=== PATIENT | female | born 1980 | race Caucasian/White ===

== ENCOUNTER → 2016-05-11 | Outpatient (CLI) | payer OTHER ==
[~2016-05-11] VITALS: Ht 165.1 cm; Wt 90.6 kg
[~2016-05-11] MED LIST: ALIGN4 MG PO; BACLOFEN PO; CALCIUM 600+D1 EAC3 PO; CELEBREX; CELEBREX 200 M200 MG PO; CELEBREX PO; CHLORZOXAZONE500 MG PO; CYMBALTA60 MG PO; DILANTIN100 MG PO; DILAUDID 2 MG TA2 MG PO; DILAUDID2 M1 PO; EFFEXOR XR75 MG PO; FISH OIL 1,0001 EAC5 PO; FLEXERIL PO; L-PHENYLALANIN500 MG PO; LAMICTAL100 MG PO; LOMOTIL TABLET1 EACH PO; LYRICA150 MG PO; LYRICA225 MG PO; METHADONE HCL 110 M1 PO; MILK THISTLE500 MG PO; MS CONTIN15 MG PO; MS CONTIN30 MG PO; MULTIVITAMINS PO; OXYCODONE HCL5 M1 PO; OXYCONTIN10 M1 PO; PRINIVIL20 MG PO; RELAFEN500 MG PO; REMERON15 MG PO; SKELAXIN 800 M800 M1 PO; SUBOXONE 8 MG-1 EAC2 SL; TIZANIDINE HCL4 MG PO; TRAZODONE HCL100 MG PO; TYROSINE PO; VENLAFAXIN75 MG/1 T2 PO; VITAMIN B-12500 MCG PO; VITAMIN D1000 UNI1 PO; WELCHOL PO; ZANAFLEX4 MG PO; ZINC CHELATE50 MG PO; [UNRECOGNIZED DRUG - OTHER]; gaba PO
--- NOTE | ~2016-05-11 | HPC ---
[facility] [place] [address] PAIN MANAGEMENT CONSULTATION Name: PIYUSH MASSEY [id number] Admission: 05/11/16 Attend Phys: Elpidio Knight DO Discharge: Date of : 78 Report #: [id number] THIS REPORT FOR: //name// CC: NARGIS physician/PCP Elpidio Knight The patient is a 35-year-old female, well known to the pain clinic, typically treated for lumbar radiculopathy, status post decompressive laminectomy, component of SI joint pain, lumbosacral spondylosis, requiring complex medication management for ongoing lumbar radicular and axial back pain. Last seen in the pain clinic on 03/05/2016. We did progress with two bilateral SI joint injections under fluoroscopy at that time. Last medication visit was 02/17/2016. The patient was continued on MS Contin 15 mg q. 8 hours, hydromorphone 2 mg one tablet 3 times a day for breakthrough pain, Celebrex 200 mg daily, and Lyrica 225 mg b.i.d. Urine drug screen at that time was positive for all prescribed medications. He returns to pain clinic today, we had a prolonged visit from 10:15 to 10:40. Her work comp administrators have requested buccal swab to verify current medications. This was collected today. The patient notes pain is at 7-8/10. Chronic low back, left hip, and leg, burning dysesthesia, exacerbated with walking, standing, and bending. Takes "breaks" every 15-20 minutes. Medications do enable her to be a little more functional. She notes with cold weather, she is having increasing breakthrough pain. PHYSICAL EXAMINATION: GENERAL: Shows a 35-year-old female, BMI is 33.2 kilograms per meter squared. Blood pressure is 95/58, pulse is 134, respirations are 20, afebrile with a temperature of 98.1. Rises from the chair using armrest. Modestly antalgic gait, diffuse. Lumbar flexion is limited to about 70 degrees. Diffuse tenderness across the low back, modestly positive straight leg raise on the left with slight decreased left hip flexion strength. Again, describes burning, tingling, numb, and cramping sensation in the low back, left hip, and leg. Rates the pain at 7-8 on a 0-10 visual analog scale. The patient continues to smoke, was counseled regarding the same. States she is down to a "less than half a pack of cigarettes a day". We reviewed the fact that opiate medications are being used to provide analgesia adequate to support activities of daily living, not attempting to achieve a specific pain score on the 0-10 Visual Analog Scale. The current opiate medications are providing sufficient analgesia to allow the patient to participate in activities of daily living. The patient is not exhibiting any aberrant behavior suggestive of drug diversion. The patient is not having any adverse reactions to medications. The patient is not suffering from daytime somnolence or mental acuity changes. The patient is managing opiate-induced [address] [address] PAIN MANAGEMENT CONSULTATION Name: PIYUSH MASSEY Room #: SANDEEP Blum#: [id number] Admission: 05/11/16 Attend Phys: Elpidio Knight DO Discharge: Date of : 78 Report #: [id number] constipation with appropriate kuqd-nme-aqluell agents and dietary considerations. The patient was counseled on concern for caution with operating a motor vehicle while using opiate medications. A physical exam was performed and the patient's functional status was evaluated. All patients with back pain were advised against the bed rest greater than 4 days and were advised to return to normal activities. Pain score assessment was noted and the treatment plan was reviewed with the patient. All current medications, both prescribed and OTC were reviewed and reconciled on the electronic medical record. Tobacco screening was accomplished and smoking cessation was advised when indicated. BMI was noted and diet/exercise modification was recommended for all patients following outside normal parameters. I reviewed with the patient today their responsibilities to safeguard prescription medications, reviewed their responsibility to utilize medications only as prescribed by the physician. They are to seek and receive pain medications only from 1 physician group ( [facility]). They are to use 1 pharmacy and keep the clinic informed if they change pharmacies. Their responsibilities include making followup visits in a timely fashion and to avoid abrupt discontinuation of medication usage. Their responsibilities further include bringing their medications (bottles from the pharmacy with residual pills) to the visit for possible confirmation of pill counts and the patient understands it is their responsibility to submit to random drug screens to ensure both that the medications prescribed are present, and that no other controlled substances are present. All prescriptions provided today were generated electronically. ASSESSMENT: Symptomatic lumbar radiculopathy status post decompressive laminectomy, sacroiliac joint dysfunction, component of lumbosacral spondylosis, requiring complex medication management, and axial back pain. Does note the SI injection gave about 40% relief for 4 days. Given the nominal efficacy, we are not moving forward with further interventional therapy at this time. I have taken the liberty of renewing her current medication with caveat that we will increase hydromorphone 2 mg t.i.d. to total of 100 tablets for 30 days, enabling a 4th tablet on or after 10 days throughout the month with increasing pain in the winter weather. We will plan on dropping back to 90 tablets hopefully in the spring. Discharged in good and stable condition. Greater than 50% of the visit was spent counseling the patient. <ELECTRONICALLY SIGNED> By: Elpidio Knight DO 05/18/16 [id number] Elpidio Knight DO /nt
[2016-05-11 10:19] VITALS: BP 95/58
== END | disposition home or self-care (01) ==
LOC: PAIN 04-13 06:31
DX: M54.12 Radiculopathy, cervical region (principal); M53.3 Sacrococcygeal disorders, not elsewhere classified; M47.896 Other spondylosis, lumbar region; M54.9 Dorsalgia, unspecified; Z98.890 Other specified postprocedural states; F17.210 Nicotine dependence, cigarettes, uncomplicated

== ENCOUNTER → 2016-10-05 | Outpatient (CLI) | payer OTHER ==
[~2016-10-05] VITALS: Ht 165.1 cm; Wt 75.8 kg
[~2016-10-05] MED LIST changes: +LYRICA 75 MG CA75 MG PO; +NEURONTIN 300300 M1 PO; +ONDANSETRON HCL4 M2 PO; +SEROQUEL 50 MG50 MG PO; +TOPROL XL25 MG PO; +VOLTAREN GEL 1100 G2 TOP
--- NOTE | ~2016-10-05 | HPC ---
[facility] [place] [address] PAIN MANAGEMENT CONSULTATION Name: PIYUSH MASSEY Room #: REG [facility] Blum#: [id number] Admission: 10/05/16 Attend Phys: Elpidio Knight DO Discharge: Date of : 78 Report #: [id number] THIS REPORT FOR: //name// CC: NARGIS physician/PCP Elpdiio Knight HISTORY OF PRESENT ILLNESS: The patient is a 35-year-old female, long known to the pain clinic, typically treated for lumbar radiculopathy requiring complex medication management. Last visit on 08/07/2016 we had elected to discontinue hydromorphone p.r.n. as she had had 2 negative urine drug screen through this agent. We increased MS Contin from 15 mg q. 8 hours to 30 mg b.i.d. I trialed some topical Voltaren gel. We discontinued Celebrex due to decrease in renal function noted on laboratory evaluation when she was hospitalized for acute cholecystitis. She returns to pain clinic today. Notes her subjective pain score is 7/10. Pain is primarily in the left hip, lateral aspect to the knee. Notes pain is exacerbated with standing and walking. She describes a burning, tingling, numb sensation, cramping sensation . The patient has been not able to work due to ongoing medical issues including GI issues status post her cholecystectomy and ongoing chronic pain concerns. She is seen in the company today of a friend who is supportive. PHYSICAL EXAMINATION: Shows a 35-year-old female, BMI is 27.8 kilograms per meter squared. Vital signs are stable as noted in the EMR. Rises from the chair using armrest, modestly antalgic gait. Left hip flexion and lower extremity left-sided extension strength is diminished, perhaps 3/5, all other muscle groups are about 4/5. Straight leg raise is positive on the left at 30 degrees. Patellar and Achilles reflexes are preserved. Skin integument is generally intact. We reviewed the fact that opiate medications are being used to provide analgesia adequate to support activities of daily living, not attempting to achieve a specific pain score on the 0-10 Visual Analog Scale. The current opiate medications are providing sufficient analgesia to allow the patient to participate in activities of daily living. The patient is not exhibiting any aberrant behavior suggestive of drug diversion. The patient is not having any adverse reactions to medications. The patient is not suffering from daytime somnolence or mental acuity changes. The patient is managing opiate-induced constipation with appropriate lmgr-wtr-zbepqbc agents and dietary considerations. The patient was counseled on concern for caution with operating a motor vehicle while using opiate medications. A physical exam was performed and the patient's functional status was evaluated. All patients with back pain were advised against the bed rest greater than [address] [place] [address] PAIN MANAGEMENT CONSULTATION Name: BRYSONPIYUSH Odalys Room #: REG [facility] Kulwant#: [id number] Admission: 10/05/16 Attend Phys: Elpidio Knight DO Discharge: Date of : 78 Report #: [id number] days and were advised to return to normal activities. Pain score assessment was noted and the treatment plan was reviewed with the patient. All current medications, both prescribed and OTC were reviewed and reconciled on the electronic medical record. Tobacco screening was accomplished and smoking cessation was advised when indicated. BMI was noted and diet/exercise modification was recommended for all patients following outside normal parameters. I reviewed with the patient today their responsibilities to safeguard prescription medications, reviewed their responsibility to utilize medications only as prescribed by the physician. They are to seek and receive pain medications only from 1 physician group ( [facility]). They are to use 1 pharmacy and keep the clinic informed if they change pharmacies. Their responsibilities include making followup visits in a timely fashion and to avoid abrupt discontinuation of medication usage. Their responsibilities further include bringing their medications (bottles from the pharmacy with residual pills) to the visit for possible confirmation of pill counts and the patient understands it is their responsibility to submit to random drug screens to ensure both that the medications prescribed are present, and that no other controlled substances are present. All prescriptions provided today were generated electronically. ASSESSMENT: 1. Symptomatic lumbar radiculopathy requiring complex medication management. 2. The patient medically disabled, currently on work compensation. RECOMMENDATION: After discussion with the patient today about therapeutic option, we have elected to continue MS Contin 30 mg b.i.d., I have taken the liberty of writing for 2 months of current medication. She is taking Lyrica 225 mg b.i.d. She thinks that gabapentin prior use had been helpful. After discussion with the patient today, we have elected to add in a low dose of gabapentin 300 mg b.i.d. to be taking concurrently with her Lyrica. We will not use p.r.n. opiate. We will not resume Celebrex despite the fact the patient tells me her renal functions are "trending towards normal." We reviewed the opiate consent to treat contract today. Also a urine drug screen was obtained today per the patient's insurance carrier request, this laboratory test will be sent to their lab (I believe the lab is [facility]). The patient was discharged in good and stable condition. Follow up in 2 months for reevaluation. By: [id number] Elpidio Knight DO /carie
[2016-10-05 10:17] VITALS: BP 122/70
== END ==
LOC: PAIN 06:07
DX: M54.16 Radiculopathy, lumbar region (principal); G89.29 Other chronic pain; I10 Essential (primary) hypertension; E11.9 Type 2 diabetes mellitus without complications; F17.210 Nicotine dependence, cigarettes, uncomplicated

== ENCOUNTER → 2016-11-23 | Outpatient (CLI) | payer OTHER ==
[~2016-11-23] VITALS: Ht 165.1 cm; Wt 81.4 kg
[~2016-11-23] MED LIST changes: +ADDERALL XR 5 MG5 MG PO; +ANASPAZ0.125 MG SL; +OMEPRAZOLE20 M1 PO; +PEPCID20 MG PO
--- NOTE | ~2016-11-23 | HPC ---
[facility] [place] [address] PAIN MANAGEMENT CONSULTATION Name: PIYUSH MASSEY Room #: REG [facility] Kulwant#: [id number] Admission: 11/23/16 Attend Phys: Elpidio Knight DO Discharge: Date of : 78 Report #: [id number] THIS REPORT FOR: //name// CC: NARGIS physician/PCP Elpidio Knight HISTORY OF PRESENT ILLNESS: The patient is a 35-year-old female being treated for lumbar radiculopathy, status post decompressive laminectomy times 2, requiring complex medication management, component of SI joint pain. The patient was last seen in the pain clinic, 10/05/2016. We increased MS Contin 15 q. 8 hours to 30 mg b.i.d., discontinued Celebrex due to some compromise in renal function noted on prior hospitalization for cholecystitis and pancreatitis. Continued Lyrica 225 mg b.i.d. I discontinued hydromorphone as it had been negative on various drug scans. It had also been positive, she was clearly taking it on a non-daily basis. I was concerned she was using it aggressively at the first part of the month and running out at the end. We trialed adding back some gabapentin as it had been efficacious in the past, though she notes it has not been helpful. She returns to pain clinic today noting pain remains quite problematic. Complains that her pain is a "7-8" on a 0-10 visual analog scale. Again, status post 2 back surgeries in 2005 initially and then a reoperation in 2007 or 2008. Most recent exacerbation of abdominal concerns, including cholecystitis and now pancreatitis, she has an EGD scheduled at [facility], actually apparently the authorization for this is pending. She notes her primary pain remains left greater than right low back and hip. She continues to smoke, but is down to 4-5 cigarettes a day. She describes burning, tingling, numb and cramping sensation in the back with some left hip and leg pain; exacerbated with activity, walking and bending. She states medications provide some improvement of pain. PHYSICAL EXAMINATION: GENERAL: Shows a 35-year-old female. BMI is 29.9 kilograms per meter squared. VITAL SIGNS: Stable as noted in the EMR. MUSCULOSKELETAL: Has a little cervical thoracic kyphosis (walks with the head forward position, not sure if this is simply posture alone). Tender in the low back over the left iliac crest. Left hip passive rotation causes pain. Positive Zenon test. Positive straight leg raise on the left is noted as well. Diffuse tenderness across the low back. We reviewed the fact that opiate medications are being used to provide analgesia adequate to support activities of daily living, not attempting to achieve a specific pain score on the 0-10 Visual Analog Scale. The current opiate medications are providing sufficient analgesia to allow the patient to participate in activities of daily living. The patient is not exhibiting any aberrant behavior suggestive of drug diversion. The [place] [address] PAIN MANAGEMENT CONSULTATION Name: PIYUSH MASSEY Room #: REG THERESA Blum#: [id number] Admission: 11/23/16 Attend Phys: Elpidio Knight DO Discharge: Date of : 78 Report #: [id number] adverse reactions to medications. The patient is not suffering from daytime somnolence or mental acuity changes. The patient is managing opiate-induced constipation with appropriate mfvp-csi-pqiuajz agents and dietary considerations. The patient was counseled on concern for caution with operating a motor vehicle while using opiate medications. A physical exam was performed and the patient's functional status was evaluated. All patients with back pain were advised against the bed rest greater than 4 days and were advised to return to normal activities. Pain score assessment was noted and the treatment plan was reviewed with the patient. All current medications, both prescribed and OTC were reviewed and reconciled on the electronic medical record. Tobacco screening was accomplished and smoking cessation was advised when indicated. BMI was noted and diet/exercise modification was recommended for all patients following outside normal parameters. I reviewed with the patient today their responsibilities to safeguard prescription medications, reviewed their responsibility to utilize medications only as prescribed by the physician. They are to seek and receive pain medications only from 1 physician group ( [facility]). They are to use 1 pharmacy and keep the clinic informed if they change pharmacies. Their responsibilities include making followup visits in a timely fashion and to avoid abrupt discontinuation of medication usage. Their responsibilities further include bringing their medications (bottles from the pharmacy with residual pills) to the visit for possible confirmation of pill counts and the patient understands it is their responsibility to submit to random drug screens to ensure both that the medications prescribed are present, and that no other controlled substances are present. All prescriptions provided today were generated electronically. ASSESSMENT: Chronic pain syndrome, requiring complex medication management; lumbar radiculopathy, status post decompressive laminectomy and SI joint dysfunction, requiring complex high-risk medication management. RECOMMENDATIONS: We will check a BUN and creatinine today. If lab values are appropriate, within normal limits, I will enable the nursing staff to phone in a prescription for Celebrex to the patient's [facility] pharmacy ([phone]). Otherwise, continue MS Contin 30 mg b.i.d., Lyrica 225 b.i.d., discontinue gabapentin due to lack of efficacy and continue Flexeril 10 mg t.i.d. for spasm. By: [id number] Elpidio Knight DO /nt
[2016-11-23 10:32] VITALS: BP 112/78
== END | disposition home or self-care (01) ==
LOC: PAIN 06:50
DX: M54.16 Radiculopathy, lumbar region (principal); Z98.890 Other specified postprocedural states; M53.3 Sacrococcygeal disorders, not elsewhere classified; K85.90 Acute pancreatitis without necrosis or infection, unspecified; K81.9 Cholecystitis, unspecified; G89.4 Chronic pain syndrome

== ENCOUNTER → 2017-01-18 | Outpatient (CLI) | payer OTHER ==
[~2017-01-18] VITALS: Ht 165.1 cm; Wt 87.5 kg
[~2017-01-18] MED LIST changes: +PRAZOSIN 1 MG CA1 M1 PO; +SEROQUEL XR 30300 MG PO
--- NOTE | ~2017-01-18 | HPC ---
[facility] [address] [place] [address] PAIN MANAGEMENT CONSULTATION Name: PIYUSH MASSEY Room #: REG [id number] Admission: 01/18/17 Attend Phys: Elpidio Knight DO Discharge: Date of : 78 Report #: [id number] THIS REPORT FOR: //name// CC: NARGIS physician/PCP Elpidio Knight HISTORY OF PRESENT ILLNESS: The patient is a 36-year-old female being treated for lumbar radiculopathy, status post decompressive laminectomy, component of SI joint dysfunction. Had been diagnosed with some chronic kidney disease earlier when she was also diagnosed with pancreatitis. She has been managed for high-risk complex medication management. Last seen in the pain clinic on 11/23/2016. She returns to pain clinic today, we again had a prolonged visit from approximately 11:35 to 12:00. Greater than 50% of this time was spent counseling the patient. She states her pain is getting worse. I discontinued hydromorphone due to multiple urine drug screens showing lack of hydromorphone and/or its metabolites while being positive for MS Contin, Lyrica and other medications she was prescribed. She returns to pain clinic today noting that she has 2 different pain complaints, #1 being her chronic low back, left buttock, hip and leg pain. She also is complaining of ongoing chronic abdominal pain. She had been diagnosed in May with chronic pancreatitis. She has "an EGD pending." Tells me she is going to a clinic that is available at a low cost option to her, and it was unclear exactly the gist of this, but the bottom line is that she is not on any pancreatic enzymes and she has not had an EGD since May, though she has been prescribed ondansetron for nausea, cyclobenzaprine for abdominal pain and hyoscyamine for abdominal cramping. Last visit, I had ordered a BUN and creatinine, again I discontinued Celebrex due to a prior finding of elevated BUN and creatinine when she was admitted with pancreatitis. The patient notes that her pain got worse without the Celebrex, and she would like to resume Celebrex, again we will have to wait and see what her renal function shows. Currently, she is taking MS Contin 30 mg b.i.d. and states she is having significant end of dose failure. PHYSICAL EXAMINATION: Shows a 36-year-old female, BMI is 32.1 kilograms per meter squared. Blood pressure is elevated at 131/98, pulse 91, respirations are 18. She is alert and oriented to person, place and time and judged to be a reasonable historian. Rises from chair using armrest. Modestly subjectively antalgic gait. The lower extremity strength is generally preserved. Patellar and Achilles reflexes are preserved. Straight leg raise is equivocal on the [facility] [address] [place] [address] PAIN MANAGEMENT CONSULTATION Name: PIYUSH MASSEY Room #: REG [facility] Kulwant#: [id number] Admission: 01/18/17 Attend Phys: Elpidio Knight DO Discharge: Date of : 78 Report #: [id number]. She has a slight decrease in left hip flexion strength. Abdominal exam shows only modest tenderness in the left lower quadrant. Right upper quadrant is unremarkable. Bowel sounds are normal. There is no guarding and no masses. We reviewed the fact that opiate medications are being used to provide analgesia adequate to support activities of daily living, not attempting to achieve a specific pain score on the 0-10 Visual Analog Scale. The current opiate medications are providing sufficient analgesia to allow the patient to participate in activities of daily living. The patient is not exhibiting any aberrant behavior suggestive of drug diversion. The patient is not having any adverse reactions to medications. The patient is not suffering from daytime somnolence or mental acuity changes. The patient is managing opiate-induced constipation with appropriate seqq-ddk-nrdikff agents and dietary considerations. The patient was counseled on concern for caution with operating a motor vehicle while using opiate medications. A physical exam was performed and the patient's functional status was evaluated. All patients with back pain were advised against the bed rest greater than 4 days and were advised to return to normal activities. Pain score assessment was noted and the treatment plan was reviewed with the patient. All current medications, both prescribed and OTC were reviewed and reconciled on the electronic medical record. Tobacco screening was accomplished and smoking cessation was advised when indicated. BMI was noted and diet/exercise modification was recommended for all patients following outside normal parameters. I reviewed with the patient today their responsibilities to safeguard prescription medications, reviewed their responsibility to utilize medications only as prescribed by the physician. They are to seek and receive pain medications only from 1 physician group ( [facility]). They are to use 1 pharmacy and keep the clinic informed if they change pharmacies. Their responsibilities include making followup visits in a timely fashion and to avoid abrupt discontinuation of medication usage. Their responsibilities further include bringing their medications (bottles from the pharmacy with residual pills) to the visit for possible confirmation of pill counts and the patient understands it is their responsibility to submit to random drug screens to ensure both that the medications prescribed are present, and that no other controlled substances are present. All prescriptions provided today were generated electronically. ASSESSMENT: Lumbar radiculopathy, status post decompressive laminectomy with left SI joint pain requiring high-risk complex medication management. Comorbidities include history of chronic kidney disease with elevated BUN and creatinine and more recently history of pancreatitis. RECOMMENDATIONS: We will try a little more flexible dosing with her MS Contin, [facility] [address] [place] [address] PAIN MANAGEMENT CONSULTATION Name: PIYUSH MASSEY Room #: REG [facility] MVal.#: [id number] Admission: 01/18/17 Attend Phys: Elpidio Knight DO Discharge: Date of : 78 Report #: [id number] I am loathe to increase her opiate load, currently taking 60 mg of morphine a day, I will enable 1 MS Contin 30 mg in the morning, 8 hours later, I will enable 115 mg MS Contin and at bedtime 115 mg MS Contin. This will enable q. 8-hour dosing while keeping the dose at 60 mg, continue Lyrica 225 mg b.i.d. We have prior discontinued gabapentin. Continue Celebrex 10 mg t.i.d. p.r.n. spasm, both abdominal and her back. I will again write for BUN and creatinine, apparently her attorneys have enabled the blood draw to be covered on her work comp insurance. Discharged in good and stable condition. Follow up in 1 month to evaluate efficacy of medication rotation and to follow up on her BUN and creatinine. We may consider addition of Celebrex at that time. By: 1230 0157 Elpidio Knight, DO /nt
[2017-01-18 11:31] VITALS: BP 131/98
== END | disposition home or self-care (01) ==
LOC: PAIN 07:16
DX: M54.16 Radiculopathy, lumbar region (principal); K86.1 Other chronic pancreatitis; R10.9 Unspecified abdominal pain; G89.29 Other chronic pain; M53.3 Sacrococcygeal disorders, not elsewhere classified; N18.9 Chronic kidney disease, unspecified; F17.200 Nicotine dependence, unspecified, uncomplicated; Z87.19 Personal history of other diseases of the digestive system; Z79.891 Long term (current) use of opiate analgesic; Z98.890 Other specified postprocedural states; Z88.0 Allergy status to penicillin; Z88.6 Allergy status to analgesic agent; Z91.041 Radiographic dye allergy status; Z79.899 Other long term (current) drug therapy

== ENCOUNTER → 2017-02-15 | Outpatient (CLI) | payer OTHER ==
[~2017-02-15] VITALS: Ht 165.1 cm; Wt 82.1 kg
--- NOTE | ~2017-02-15 | HPC ---
[facility] [address] [place] [address] PAIN MANAGEMENT CONSULTATION Name: PIYUSH MASSEY Room #: REG [facility]#: [id number] Admission: 02/15/17 Attend Phys: Elpidio Knight DO Discharge: Date of : 78 Report #: [id number] THIS REPORT FOR: //name// CC: NARGIS physician/PCP Elpidio Knight DATE OF SERVICE: 02/15/2017 The patient is a 36-year-old female being treated for lumbar radiculopathy status post decompressive laminectomy, SI joint pain, concerns for chronic kidney disease, history of pancreatitis requiring high-risk complex medication management. Last seen in the pain clinic 01/18/2017. We rotated from MS Contin 30 mg b.i.d. due to complaints of dose failure to MS Contin 30 mg in the morning with MS Contin 15 mg 8 hours later and again 15 mg MS Contin at bedtime. Continued Lyrica 225 mg b.i.d. unchanged and cyclobenzaprine (Flexeril) 10 mg t.i.d. as needed for spasm. The patient returns to pain clinic today noting medications are generally providing sufficient analgesia to participate in activities of daily living. Last random drug screen 10/05/2016 was positive for prescribed medications. Today, she has rated her pain impact score fairly high about 67/70. Subjective pain score of 4/10. Primary pain low back, left hip and leg. She notes chronic tingling, burning, cramping sensation exacerbated with activity, standing, walking and bending. 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 She is looking for some kind of a gainful employment that will accommodate her subjective physical limitations. She states she cannot stand or walk for any period of time or lift any significant weight. She continues to smoke and was counseled regarding same. PHYSICAL EXAMINATION: Otherwise, shows 36-year-old female, BMI is 30.1 kilograms per meter squared. Rises from chair using armrest. Diffuse tenderness across the low back, modestly antalgic gait favoring the left hip and leg. Diffuse tenderness across the low back and left SI area. Abdominal pain is fairly nominal at this time. We reviewed the fact that opiate medications are being used to provide analgesia adequate to support activities of daily living, not attempting to achieve a specific pain score on the 0-10 Visual Analog Scale. The current opiate medications are providing sufficient analgesia to allow the patient to participate in activities of daily living. The patient is not exhibiting any aberrant behavior suggestive of drug diversion. The patient is not having any adverse reactions to medications. The patient [place] [address] PAIN MANAGEMENT CONSULTATION Name: PIYUSH MASSEY Room #: REG Lili Blum#: [id number] Admission: 02/15/17 Attend Phys: Elpidio Knight DO Discharge: Date of : 78 Report #: [id number] somnolence or mental acuity changes. The patient is managing opiate-induced constipation with appropriate gzez-gpn-thsmffz agents and dietary considerations. The patient was counseled on concern for caution with operating a motor vehicle while using opiate medications. A physical exam was performed and the patient's functional status was evaluated. All patients with back pain were advised against the bed rest greater than 4 days and were advised to return to normal activities. Pain score assessment was noted and the treatment plan was reviewed with the patient. All current medications, both prescribed and OTC were reviewed and reconciled on the electronic medical record. Tobacco screening was accomplished and smoking cessation was advised when indicated. BMI was noted and diet/exercise modification was recommended for all patients following outside normal parameters. I reviewed with the patient today their responsibilities to safeguard prescription medications, reviewed their responsibility to utilize medications only as prescribed by the physician. They are to seek and receive pain medications only from 1 physician group ( [facility]). They are to use 1 pharmacy and keep the clinic informed if they change pharmacies. Their responsibilities include making followup visits in a timely fashion and to avoid abrupt discontinuation of medication usage. Their responsibilities further include bringing their medications (bottles from the pharmacy with residual pills) to the visit for possible confirmation of pill counts and the patient understands it is their responsibility to submit to random drug screens to ensure both that the medications prescribed are present, and that no other controlled substances are present. All prescriptions provided today were generated electronically. ASSESSMENT: Lumbar radiculopathy status post decompressive laminectomy, sacroiliac joint dysfunction requiring high-risk complex medication management. Comorbidity includes history of pancreatitis and some chronic kidney disease. I reviewed the patient's lab studies, creatinine was mildly elevated at 1.03 (with the normals being 0.57-1.0). BUN was within normal limits 11 with the normals being 6-20. EGFR 70 with normals being greater than 59. With this after a long discussion, we have elected to resume Celebrex on a nondaily basis, we will dispense 20 tablets for 30 days. We want to recheck BUN and creatinine in about 90 days. RECOMMENDATION: Continue MS Contin 30 mg in the a.m., 15 mg at noon, 15 mg at bedtime, taken the liberty of writing for 2 months of this medication. Resume [address] [address] PAIN MANAGEMENT CONSULTATION Name: PIYUSH MASSEY [facility] [id number] Admission: 02/15/17 Attend Phys: Elpidio Knight DO Discharge: Date of : 78 Report #: [id number] Celebrex 200 mg 1 tablet on a nondaily basis, 20 tablets for 30 days. Follow up in 2 months for reevaluation. <ELECTRONICALLY SIGNED> By: Elpidio Knight DO 02/17/17 0802 [id number] lEpidio Knight DO /nt
[2017-02-15 10:53] VITALS: BP 121/82
== END ==
LOC: PAIN 07:07
DX: M54.16 Radiculopathy, lumbar region (principal)

== ENCOUNTER → 2017-04-15 | Outpatient (CLI) | payer OTHER ==
[~2017-04-15] VITALS: Ht 165.1 cm; Wt 85.0 kg
--- NOTE | ~2017-04-15 | HPC ---
[facility] [place] [address] [place] [address] PAIN MANAGEMENT CONSULTATION Name: PIYUSH MASSEY [facility] #: [facility] [id number] Admission: 04/15/17 Attend Phys: Elpidio Knight, DO Discharge: Date of : 78 Report #: [id number] THIS REPORT FOR: //name// CC: NARGIS physician/PCP Elpidio Knight The patient is a 36-year-old female, long known to the pain clinic, typically treated for lumbar radiculopathy, status post decompressive laminectomy, she has history of chronic kidney disease, history of pancreatitis, requires high risk complex medication management. Last seen in the pain clinic 02/15/2017, continued on MS Contin 30 mg in the morning, MS Contin 15 mg in the afternoon and evening. Lyrica 225 mg b.i.d. and Flexeril 10 mg t.i.d. Last visit, we checked her renal function, her eGFR was 70, we elected to resume Celebrex on a nondaily basis, limit 20 tablets for 30 days. We want to check her kidney function probably at next visit. 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 Last random drug screen was 10/05/2016, positive for prescribed medications including morphine, hydromorphone, and Lyrica. We have subsequently discontinued hydromorphone. The patient returns to pain clinic today noting ongoing low back pain, left leg weakness, she states the left leg occasionally "gives out" on stairs. She has a burning dysesthesia in the left leg. Objective exam shows negative straight leg raise bilaterally, but slight diminution of left leg strength to hip flexion and extension. About 3/5 versus 4/5 muscle strength on the contralateral (right) side. Patellar and Achilles reflexes are diminished, but symmetric. PHYSICAL EXAMINATION: Otherwise shows a 36-year-old female, BMI is 31.2 kg/m2. She continues to smoke, but is "weaning." Blood pressure is 142/83, pulse is 118, and respirations are 14. Alert and oriented to person, place and time, judged to be a reasonable historian. Rises from chair using armrests. Antalgic gait. Diffuse axial tenderness. We reviewed the fact that opiate medications are being used to provide analgesia adequate to support activities of daily living, not attempting to achieve a specific pain score on the 0-10 Visual Analog Scale. The current opiate medications are providing sufficient analgesia to allow the patient to participate in activities of daily living. The patient is not exhibiting any aberrant behavior suggestive of drug diversion. The patient is not having any adverse reactions to medications. The patient is not suffering from daytime somnolence or mental acuity changes. The patient is managing opiate-induced constipation with appropriate ydsb-gcf-fiioelg agents and dietary considerations. The patient was counseled on concern for caution with operating a motor vehicle while using opiate medications. [address] [address] PAIN MANAGEMENT CONSULTATION Name: PIYUSH MASSEY Room #: REG [facility] Blum#: [id number] Admission: 04/15/17 Attend Phys: Elpidio Knight DO Discharge: Date of : 78 Report #: [id number] A physical exam was performed and the patient's functional status was evaluated. All patients with back pain were advised against the bed rest greater than 4 days and were advised to return to normal activities. Pain score assessment was noted and the treatment plan was reviewed with the patient. All current medications, both prescribed and OTC were reviewed and reconciled on the electronic medical record. Tobacco screening was accomplished and smoking cessation was advised when indicated. BMI was noted and diet/exercise modification was recommended for all patients following outside normal parameters. I reviewed with the patient today their responsibilities to safeguard prescription medications, reviewed their responsibility to utilize medications only as prescribed by the physician. They are to seek and receive pain medications only from 1 physician group ([facility]). They are to use 1 pharmacy and keep the clinic informed if they change pharmacies. Their responsibilities include making followup visits in a timely fashion and to avoid abrupt discontinuation of medication usage. Their responsibilities further include bringing their medications (bottles from the pharmacy with residual pills) to the visit for possible confirmation of pill counts and the patient understands it is their responsibility to submit to random drug screens to ensure both that the medications prescribed are present, and that no other controlled substances are present. All prescriptions provided today were generated electronically. ASSESSMENT: Chronic axial back pain, lumbar radiculopathy, status post decompressive laminectomy, history of pancreatitis, stable on baseline medications. RECOMMENDATION: 1. UDS and buccal swab per insurance today. 2. Continue current medications unchanged, MS Contin 30 mg in the morning, MS Contin 15 mg at noon and at night. 3. Lyrica 225 b.i.d. and Flexeril 10 mg t.i.d. Discharged in good and stable condition. Follow up in 2 months for reevaluation. <ELECTRONICALLY SIGNED> By: Elpidio Knight DO 04/21/17 0808 [id number] [id number] Elpidio Knight DO /nt
[2017-04-15 10:07] VITALS: BP 142/83
== END ==
LOC: PAIN 07:25
DX: M54.16 Radiculopathy, lumbar region (principal); M54.9 Dorsalgia, unspecified; Z98.890 Other specified postprocedural states; Z87.448 Personal history of other diseases of urinary system; Z87.19 Personal history of other diseases of the digestive system; Z79.899 Other long term (current) drug therapy

== ENCOUNTER → 2017-06-07 | Outpatient (CLI) | payer OTHER ==
[~2017-06-07] VITALS: Ht 165.1 cm; Wt 86.2 kg
[~2017-06-07] MED LIST changes: +BACLOFEN20 MG PO; +COUMADIN 5 MG TA5 M1 PO; +HUMALOG KW100 UNIT/1 SUBQ; +HYOSCYAMINE0.125 M2 PO; +LANTUS100 UNIT/M SUBQ; +LATUDA20 MG PO; +LOPRESSOR25 PO; +LYRICA300 MG PO; +METFORMIN HCL500 MG PO; +MORPHINE SULFAT15 M3 PO; +TRILEPTAL 300300 MG PO
--- NOTE | ~2017-06-07 | HPC ---
[facility] [place] [address] PAIN MANAGEMENT CONSULTATION Name: PIYUSH MASSEY Room #: REG [facility] [id number] Admission: 06/07/17 Attend Phys: Elpidio Knight DO Discharge: Date of : 78 Report #: [id number] THIS REPORT FOR: //name// CC: [facility] physician/PCP Elpidio Knight DATE OF SERVICE: 06/07/2017 HISTORY OF PRESENT ILLNESS: The patient is a 36-year-old female, long known to pain clinic, typically treated for lumbar radiculopathy status post decompressive laminectomy, history of chronic kidney disease, requiring high risk complex medication management. Last seen in the pain clinic on 04/15/2017. She had been struggling with a history of pancreatitis. We checked her renal function; it was a little bit closer to normal. EGFR was 70. We elected to resume Celebrex on a nondaily basis. I continued the patient on her baseline medication including MS Contin 30 mg in the morning and 15 mg twice daily for a total daily dose of 60 mg of morphine equivalence. Lyrica 225 b.i.d., Flexeril 10 mg t.i.d. She was discharged in good and stable condition. We did obtain a buccal swab per insurance at last visit. She returns to the pain clinic today. We had a prolonged visit from 1340 to 1420 hours. Greater than 50% of this approximately 40-minute visit was spent counseling the patient. The patient has had significant interval history since we saw her. She was admitted at [facility] on 05/12 through the of this year, initially admitted with groin pain. Found to have DVTs, bilateral legs. It sounds like she had bilateral thromboembolectomies and is currently on Coumadin. She does have what appear to be gangrenous tips on her second and third toe on the right side. They did start her on a little MS IR 15 mg prescription for 60 tablets, was generated and filled on 06/02/2017. They also increased her Lyrica to 300 mg b.i.d. in the hospital. Returns to the pain clinic today noting that pain is quite problematic, primarily in the right foot, it is swollen. Fortunately, it is warm, has significant hyperpathia and allodynia. Ongoing axial back pain remains problematic, abdominal pain at least is a little improved. She states that the prescription I had generated for Levsin while efficacious was quite costly and she was unable to get this medicine continued. She notes her pain as a "10" on a VAS. Vital signs are stable as noted in the EMR. BMI is 31.6 kilograms per meter squared. She uses a cane for balance. She does have a walking post-surgical type boot on the right lower extremity. Medication list was reconciled today. [place]iate [place] [address] PAIN MANAGEMENT CONSULTATION Name: PIYUSH MASSEY Room #: REG [facility] Kulwant#: [id number] Admission: 06/07/17 Attend Phys: Elpidio Knight DO Discharge: Date of : 78 Report #: [id number] last signed on 10/05/2016. The patient continues to smoke, although fortunately she is at least down to 6 cigarettes a day. PHYSICAL EXAMINATION: Does show diffuse tenderness across the low back. Again, warm toes, but hyperpathia, allodynia and swelling in the right foot. Diffuse tenderness across the low back. We reviewed the fact that opiate medications are being used to provide analgesia adequate to support activities of daily living, not attempting to achieve a specific pain score on the 0-10 Visual Analog Scale. The current opiate medications are providing sufficient analgesia to allow the patient to participate in activities of daily living. The patient is not exhibiting any aberrant behavior suggestive of drug diversion. The patient is not having any adverse reactions to medications. The patient is not suffering from daytime somnolence or mental acuity changes. The patient is managing opiate-induced constipation with appropriate tpgb-zxq-gkgdlaw agents and dietary considerations. The patient was counseled on concern for caution with operating a motor vehicle while using opiate medications. A physical exam was performed and the patient's functional status was evaluated. All patients with back pain were advised against the bed rest greater than 4 days and were advised to return to normal activities. Pain score assessment was noted and the treatment plan was reviewed with the patient. All current medications, both prescribed and OTC were reviewed and reconciled on the electronic medical record. Tobacco screening was accomplished and smoking cessation was advised when indicated. BMI was noted and diet/exercise modification was recommended for all patients following outside normal parameters. I reviewed with the patient today their responsibilities to safeguard prescription medications, reviewed their responsibility to utilize medications only as prescribed by the physician. They are to seek and receive pain medications only from 1 physician group ( [facility]). They are to use 1 pharmacy and keep the clinic informed if they change pharmacies. Their responsibilities include making followup visits in a timely fashion and to avoid abrupt discontinuation of medication usage. Their responsibilities further include bringing their medications (bottles from the pharmacy with residual pills) to the visit for possible confirmation of pill counts and the patient understands it is their responsibility to submit to random drug screens to ensure both that the medications prescribed are present, and that no other controlled substances are present. All prescriptions provided today were generated electronically. Today, curiously, we did get yet another request for a random drug screen. 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 [facility] [address] [place] [address] PAIN MANAGEMENT CONSULTATION Name: PIYUSH MASSEY Room #: REG [facility]#: [id number] Admission: 06/07/17 Attend Phys: Elpidio Knight DO Discharge: Date of : 78 Report #: [id number] ASSESSMENT: Chronic pain syndrome requiring high risk complex medication management, lumbar radiculopathy status post decompressive laminectomy, chronic abdominal pain secondary to pancreatitis relatively resolved, new diagnosis of deep venous thrombosis with right lower extremity ischemia. RECOMMENDATION: 1. Continue anticoagulant and other medications as prescribed by general physician. 2. We will increase MS Contin from 60 to 75 mg, we will have the patient take MS Contin 30 mg b.i.d. with 15 mg MS Contin midday. We will increase Lyrica from 225 mg b.i.d. to 300 mg b.i.d. We will discontinue cyclobenzaprine as the patient is complaining of ongoing spasm and "twitching" on her right foot. We will try baclofen 20 mg t.i.d. (may use one-half to one tablet t.i.d.). Continue Celebrex 200 mg every other day. Discharged in good and stable condition after a prolonged visit was spent reviewing significant interval history. <ELECTRONICALLY SIGNED> By: Elpidio Knight DO 06/09/17 1417 [id number] Elpidio Knight DO /carie
[2017-06-07 13:16] VITALS: BP 133/88
== END ==
LOC: PAIN 07:05
DX: M54.16 Radiculopathy, lumbar region (principal); K85.90 Acute pancreatitis without necrosis or infection, unspecified; G89.4 Chronic pain syndrome; I82.4Z1 Acute embolism and thrombosis of unspecified deep veins of right distal lower extremity; I99.8 Other disorder of circulatory system; Z98.890 Other specified postprocedural states; Z79.899 Other long term (current) drug therapy; Z87.448 Personal history of other diseases of urinary system

== ENCOUNTER → 2017-08-09 | Outpatient (CLI) | payer OTHER ==
[~2017-08-09] VITALS: Ht 165.1 cm; Wt 77.7 kg
[~2017-08-09] MED LIST changes: -LATUDA20 MG PO
--- NOTE | ~2017-08-09 | HPC ---
[facility] [address] [place] [address] PAIN MANAGEMENT CONSULTATION Name: PIYUSH MASSEY [facility] [id number] Admission: 08/09/17 Attend Phys: Elpidio Knight DO Discharge: Date of : 78 Report #: [id number] THIS REPORT FOR: //name// CC: [facility] physician/PCP Elpidio Knight The patient is a 36-year-old female, typically treated for lumbar radiculopathy, status post decompressive laminectomy; chronic pain syndrome requiring complex medication management. Comorbidity includes a component of chronic kidney disease, though this is relatively improved. Last EGFR was 70. History of pancreatitis, though this is largely resolved. She has had significant interval health history since I saw her on 06/07/2017. We increased the patient's opiate from MS Contin 30 mg in the morning with 15 in the afternoon and 15 in the evening to 30 mg b.i.d. with 15 in the afternoon. Continue Lyrica 300 mg b.i.d. and Flexeril 10 mg t.i.d. for spasm. We had rotated Flexeril 10 mg t.i.d. to baclofen 10 mg t.i.d. with dwindling efficacy. She is requesting rotation back to 10 of Flexeril t.i.d. The patient returns to pain clinic today. She has had significant interval history since we last saw her. 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 With the revascularization (embolectomy), she is having improved blood flow. The fourth toe still does have a necrotic tip, though she states it is getting a little bit warmer. Does have pain at the surgical site, slow but progressive healing at the amputation site. Antalgic gait, using a cane in the contralateral left hand. Axial back pain remains problematic, rates her overall pain 8 on a VAS. She tells me that she has not had much problem from pancreatic standpoint. Unfortunately, when she had her acute pancreatitis, she subsequently was found to be a diabetic and has had trouble getting blood sugars under control, but tells me that they are running from 100-120, in the mid one-teens. She continues to smoke, up to about a half pack a day. She had been weaning down. Today she was counseled regarding smoking cessation. We reviewed the fact that opiate medications are being used to provide analgesia adequate to support activities of daily living, not attempting to achieve a specific pain score on the 0-10 Visual Analog Scale. The current opiate medications are providing sufficient analgesia to allow the patient to participate in activities of daily living. The patient is not exhibiting any aberrant behavior suggestive of drug diversion. The patient is not having any adverse reactions to medications. The patient is not suffering from daytime somnolence or mental acuity changes. The patient is managing opiate-induced constipation with appropriate vjbe-yxf-hkdhfgk agents and dietary considerations. The patient was counseled on concern for caution with operating a motor vehicle while using opiate medications. [address] [address] PAIN MANAGEMENT CONSULTATION Name: PIYUSH MASSEY Room #: REG [facility]um#: [id number] Admission: 08/09/17 Attend Phys: Elpidio Knight DO Discharge: Date of : 78 Report #: [id number] A physical exam was performed and the patient's functional status was evaluated. All patients with back pain were advised against the bed rest greater than 4 days and were advised to return to normal activities. Pain score assessment was noted and the treatment plan was reviewed with the patient. All current medications, both prescribed and OTC were reviewed and reconciled on the electronic medical record. Tobacco screening was accomplished and smoking cessation was advised when indicated. BMI was noted and diet/exercise modification was recommended for all patients following outside normal parameters. I reviewed with the patient today their responsibilities to safeguard prescription medications, reviewed their responsibility to utilize medications only as prescribed by the physician. They are to seek and receive pain medications only from 1 physician group ( [facility]). They are to use 1 pharmacy and keep the clinic informed if they change pharmacies. Their responsibilities include making followup visits in a timely fashion and to avoid abrupt discontinuation of medication usage. Their responsibilities further include bringing their medications (bottles from the pharmacy with residual pills) to the visit for possible confirmation of pill counts and the patient understands it is their responsibility to submit to random drug screens to ensure both that the medications prescribed are present, and that no other controlled substances are present. All prescriptions provided today were generated electronically. PHYSICAL EXAMINATION: Otherwise shows 36-year-old female, alert and oriented to person, place and time, judged to be a reasonable historian. BMI is 28.5 kilograms per meter squared. Blood pressure 124/82, pulse 93, respirations are 14, oxygen saturation 100%. Subjective pain score is 8 on a VAS. Using a cane as noted in the left hand, is on Coumadin now, status post embolectomy. History of hypertension. Medication list was reconciled. Opiate consent to treat contract was signed 10/05/2016. Per her insurance company, we are again repeating a drug screen. Last drug screen on 06/07/2017 was positive for morphine as expected. Lyrica and Flexeril, which she was on a p.r.n. basis. She rises from chair using armrest, modestly antalgic gait, again right foot surgical site was described in the chief complaint. Diffuse tenderness across the low back. No discrete trigger points noted. ASSESSMENT: Lumbar radiculopathy, status post decompressive laminectomy, chronic kidney disease. Again, EGFR is improved. I did enable the patient to take Celebrex 200 mg on a nondaily basis, limit 20 tablets for 30 days. I did renew that prescription for her, but asked her to hold off on filling it and to check with her primary treating physician and get their permission to use Celebrex with concurrent Coumadin use. [address] [address] PAIN MANAGEMENT CONSULTATION Name: PIYUSH MASSEY Room #: REG [facility] Kulwant#: [id number] Admission: 08/09/17 Attend Phys: Elpidio Knight DO Discharge: Date of : 78 Report #: [id number] We have elected to rotate from baclofen back to Flexeril 10 mg t.i.d. The patient gets better muscle relaxation with this agent (flexeril). Continue Lyrica 300 mg b.i.d. Given ongoing postsurgical pain, we elected to continue baseline narcotic at 75 mg morphine equivalent a day, MS Contin 30 mg b.i.d. with MS 15 mid day. I have taken the liberty of writing for 2 months of current medication. The patient was discharged in good and stable condition. Again moderately prolonged visit from 10:35-11:00 a.m. Greater than 50% of this 25-minute visit spent counseling the patient, reviewing interval health history, stressing ongoing need for a nicotine cessation, especially in light of her atherosclerotic peripheral vascular disease component. <ELECTRONICALLY SIGNED> By: Elpidio Knight DO 08/11/17 0753 [id number] Elpidio Knight DO /nt
[2017-08-09 10:06] VITALS: BP 124/82
== END ==
LOC: PAIN 07:12
DX: M54.16 Radiculopathy, lumbar region (principal); M96.1 Postlaminectomy syndrome, not elsewhere classified; N18.9 Chronic kidney disease, unspecified